=== PATIENT | female | born 1980 | race Two or more races ===

== ENCOUNTER 2020-11-13 05:44 | Day surgery (SDC) | payer MEDICARE, MEDICAID ==
--- NOTE | 2020-11-09 11:13 | Opthalmology H&P ---
Ophthalmology H&P H&P Chief Complaint: decreased vision in right eye HPI Vision Affects Ability to: read, drive, manage personal affairs HPI Narrative Blurry vision Exam Visual Acuity: OD 20/60 OS 20/80 Tension: OD 13 OS 13 Eye Exam: normal OU: external exam, palpebral fissure-width, marginal reflex distance, levator function, corneas, anterior chambers, fundus exam; findings: lens - PSC Cataract OD Assessment/Plan Treatment Plan: cataract extraction w/ lens implant Goals of Treatment: improvement of vision, enhance quality of life Attestation Attestation The risks and benefits of the surgery as well as alternative procedures were explained to the patient in detail. Justino Talamantes MD Nov 09, 2020 11:13
--- NOTE | 2020-11-09 11:14 | Pre-Procedure Note/Attestation ---
Pre-Procedure Note/Attestation Complete Prior to Procedure Planned Procedure: right Procedure Narrative: Cataract extraction with IOL implant right eye Indications for Procedure Pre-Operative Diagnosis: Posterior subcapsular cataract right eye Attestation I attest that I discussed the nature of the procedure; its benefits; risks and complications; and alternatives (and the risks and benefits of such alternatives), prior to the procedure, with the patient (or the patient's legal herbicide service sales representative). I attest that, if there was a reasonable possibility of needing a blood transfusion, the patient (or the patient's legal herbicide service sales representative) was given the [facility] standardized written summary, pursuant to the Adriel Maulik Blood Safety Act ([place] [facility] and Safety Code # 1645, as amended). I attest that I re-evaluated the patient just prior to the surgery and that ther e has been no change in the patient's H&P, except as documented below: Justino Talamantes MD Nov 09, 2020 11:14
--- NOTE | 2020-11-09 11:22 | Opthalmology H&P ---
Ophthalmology H&P H&P Chief Complaint: decreased vision in right eye HPI Vision Affects Ability to: read, drive, manage personal affairs HPI Narrative Blurry Vision Exam Visual Acuity: OD 20/60 OS 20/50 Tension: OD 13 OS 16 Eye Exam: normal OU: external exam, palpebral fissure-width, marginal reflex distance, levator function, corneas, anterior chambers; findings: lens - NS Cataract OD, fundus exam - NPDR OU Assessment/Plan Treatment Plan: cataract extraction w/ lens implant Goals of Treatment: improvement of vision, enhance quality of life Attestation Attestation The risks and benefits of the surgery as well as alternative procedures were explained to the patient in detail. Justino Talamantes MD Nov 09, 2020 11:22
[2020-11-13] VITALS (11 sets, daily range): BP systolic 56–118; BP diastolic 51–72
[~2020-11-13] VITALS: Ht 165.1 cm; Wt 68.5 kg
[~2020-11-13 05:44] MED LIST: ALBUTEROL SULF8.5 G2 IH; VICODIN PO
[2020-11-13] MEDS: Tropicamide 1% Opth 15ml Soln RIGHT EYE SCH ×3 (06:22→06:35)
[2020-11-13] MEDS: Phenylephrine 10% Opth Soln 5ml RIGHT EYE SCH ×3 (06:22→06:36)
[2020-11-13] MEDS: Tobramycin Op Soln 0.3% 5ml RIGHT EYE SCH ×3 (06:22→06:35)
[2020-11-13] MEDS: Diclofenac Sod 0.1% Op Soln RIGHT EYE SCH ×3 (06:22→06:36)
[2020-11-13] MEDS ORDERED: Proparacaine 0.5% Opth Soln 15ml RIGHT EYE ONE (07:00)
[2020-11-13] MEDS ORDERED: Maxitrol Opth Oint 3.5gm ONE (07:00)
[2020-11-13] MEDS ORDERED: prednisoLONE acetate 1% Opth Susp 1ml ONE (07:00)
[2020-11-13] MEDS ORDERED: Tetracaine 0.5% Opth 4ml Soln RIGHT EYE ONE (07:00)
[2020-11-13] MEDS ORDERED: Akten 3.5% 1ml Btl RIGHT EYE ONE (07:00)
[2020-11-13] MEDS ORDERED: Pilocarpine 1% Opth 15ml Soln ONE (07:00)
[2020-11-13] MEDS ORDERED: Midazolam 2mg/2ml Inj ONE (07:11)
[2020-11-13] MEDS ORDERED: fentaNYL 100 mcg/2 mL IV ONE (07:11)
--- NOTE | 2020-11-13 07:24 | Anethesia Preoperative Eval ---
Anesthesia Pre-op PMH/ROS General Date of Evaluation: Nov 13, 2020 Time of Evaluation: 07:22 Anesthesiologist: Lane ASA Score: ASA 3 Mallampati Score Class I : Soft palate, uvula, fauces, pillars visible Class II: Soft palate, uvula, fauces visible Class III: Soft palate, base of uvula visible Class IV: Only hard plate visible Mallampati Classification: Class II Surgeon: [place] Diagnosis: R eye cataract Surgical Procedure: Cataract extraction Anesthesia History: none Social History: smoking - h/o Family History: no anesthesia problems Allergies: Coded Allergies: PENICILLINS (Verified Allergy, Severe, SWELLING, 11/13/20) Medications: see eMAR Patient NPO?: Yes Past Medical History Cardiovascular: Denies: HTN, CAD, [place], valve dz, arrhythmia, other Pulmonary: Reports: asthma - stable on meds; Denies: COPD, NATALY, other Gastrointestinal/Genitourinary: Reports: GERD; Denies: CRI, ESRD, other Neurologic/Psychiatric: Reports: CVA, depression/anxiety, other - h/o seizers Endocrine: Denies: DM, hypothyroidism, steroids, other HEENT: Reports: cataract (R), other - R eye retinal detouchment; Denies: cataract (L), glaucoma, [place] (L), [place] (R) Hematology/Immune: Reports: anemia - mild; Denies: DVT, bleeding disorder, other Musculoskeletal/Integumentary: Denies: OA, RA, DJD, DDD, edema, other PMH Narrative: as above PSxH Narrative: R eye retinal Sx, tubal ligation Anesthesia Pre-op Phys. Exam Physician Exam Last Vital Signs Date Time Temp Pulse Resp B/P (MAP) Pulse Ox O2 Delivery O2 Flow Rate FiO2 11/13/20 06:30 Room Air 11/13/20 06:25 98.7 68 18 118/60 99 Constitutional: NAD Neurologic: CN 2-12 intact Cardiovascular: RRR, no M/R/G Respiratory: CTA Gastrointestinal: S/NT/ND Airway Exam Mallampati Score: Class II MO: limited Neck: stiff ROM: limited Teeth: missing Dentures: no upper, no lower Anesthesia Pre-op A/P Labs see chart Studies Pre-op Studies: EKG - NSR Risk Assessment & Plan Assessment: ASA 3 Plan: MAC Status Change Before Surgery: No Vakulenko,Kang MD Nov 13, 2020 07:24
[2020-11-13] MEDS ORDERED: Carbachol 0.01% Op Soln 1.5ml vial ONE (07:33)
[2020-11-13] MEDS ORDERED: BSS 15ml BTL ONE (07:33)
[2020-11-13] MEDS ORDERED: EPINEPHrine 1mg/1ml Amp ONE (07:33)
[2020-11-13] MEDS ORDERED: BSS 500ml btl ONE (07:33)
[2020-11-13] MEDS ORDERED: Sodium Hyaluronate 10 mg/ml 0.85ml ONE (07:33)
[2020-11-13] MEDS ORDERED: acetaZOLAMIDE 500mg Inj ONE (07:33)
[2020-11-13] MEDS ORDERED: Lidocaine 4% Amp 5ml ONE (07:42)
[2020-11-13] MEDS ORDERED: Bupivacaine 0.75% 30ml vial INJ ONE (07:42)
[2020-11-13] MEDS ORDERED: Povidone-Iodine 5% opth solution ONE (07:42)
[2020-11-13] MEDS ORDERED: Lidocaine 2% MPF 5ml Vial INJ ONE (07:42)
[2020-11-13] MEDS ORDERED: Lidocaine 1% MPF 10mg/ml 5ml ONE (07:42)
[2020-11-13] MEDS ORDERED: fentaNYL 100 mcg/2 mL IV PRN (07:45)
[2020-11-13] MEDS ORDERED: LR 1000ml 1,000 ML IVLG SCH (07:45)
[2020-11-13] MEDS ORDERED: LR 1000ml ONE (08:00)
[2020-11-13] MEDS ORDERED: Sterile Water Irrig 1000ml IRRIG ONE (08:00)
[2020-11-13] MEDS ORDERED: NS Irrig 1000ml ONE (08:00)
--- NOTE | 2020-11-13 08:39 | Immediate Post-Op Evaluation ---
Immediate Post-Op Evalulation Immediate Post-Op Evalulation Procedure: R eye cataract extraction with IOL Date of Evaluation: Nov 13, 2020 Time of Evaluation: 08:38 IV Fluids: 400 Blood Products: none Estimated Blood Loss: none Urinary Output: none Blood Pressure Systolic: 121 Blood Pressure Diastolic: 64 Pulse Rate: 76 Respiratory Rate: 20 O2 Sat by Pulse Oximetry: 99 Temperature (Fahrenheit): 97.8 Pain Score (1-10): 1 Nausea: No Vomiting: No Complications none Patient Status: awake, patent, none Hydration Status: adequate Kang Sherman MD Nov 13, 2020 08:39
[2020-11-13] MEDS ORDERED: HYDROcodone/Acetamin 5/325 tab ORAL SCH (09:30)
[2020-11-13] MEDS ORDERED: HYDROcodone/Acetamin 5/325 tab ONE (09:34)
--- NOTE | 2020-11-13 11:21 | 48 Hour Post Anesthesia Eval ---
Post Anesthesia Evaluation Procedure: R eye cataract extraction with IOL Date of Evaluation: Nov 13, 2020 Time of Evaluation: 09:30 Blood Pressure Systolic: 56 0: 72 Pulse Rate: 68 Respiratory Rate: 20 Temperature (Fahrenheit): 97.6 O2 Sat by Pulse Oximetry: 99 Airway: patent Nausea: No Vomiting: No Pain Intensity: 2 Hydration Status: adequate Cardiopulmonary Status: stable Mental Status/LOC: patient returned to baseline Follow-up Care/Observations: n/a Post-Anesthesia Complications: none Follow-up care needed: ready to discharge Kang Sherman MD Nov 13, 2020 11:21
--- NOTE | 2020-11-15 09:24 | Brief Operative Note ---
Immediate Post Operative Note Operative Note Chief Complaint: Blurry vision Pre-op Diagnosis: Posterior subcapsular cataract right eye Procedure: Cataract extraction with IOL implant right eye Post-op Diagnosis: Pseudo OD Findings: consistent w/pre-op dx studies Surgeon: Justino Talamantes MD Anesthesiologist: Kang Sherman MD Anesthesia: MAC Specimen: none Complications: none Condition: stable Fluids: LR Estimated Blood Loss: none Drains: none Implant(s) used?: Yes - IOL-OD Justino Talamantes MD Nov 15, 2020 09:24
--- NOTE | 2020-11-15 09:28 | Operative Note - PDOC ---
Operative Note Operative Note Date of Operation/Procedure: Nov 13, 2020 Chief Complaint: Blurry vision Pre-op Diagnosis: Posterior subcapsular cataract right eye Procedure: Cataract extraction with IOL implant right eye Post-op Diagnosis: Pseudo OD Operative Findings: consistent w/pre-op dx studies Surgeon: Justino Talamantes MD Anesthesiologist: Kang Sherman MD Anesthesia: MAC Specimen: none Complications: none Condition: stable Fluids: LR Estimated Blood Loss: none Drains: none Implant(s) used?: Yes - IOL-OD Indications for Procedure Posterior subcapsular cataract right eye Description of Procedure This patient has been complaining visually significant cataract in the right eye with the best corrected visual acuity of 20/80 under moderate glare conditions worse. The patient complains of difficulties with glare in performing activities of daily living and wants to manage personal affairs with comfort and accuracy and see well enough to move with safety at home and outdoors. The risks, benefits and alternatives of the procedure were discussed with the patient in the office prior to scheduling surgery. All questions from the patient were answered after the surgical procedure was explained in detail. The risks of the procedure as explained to the patient include, but are not limited to, pain, infection, bleeding, loss of vision, retinal detachment, need for further surgery, loss of lens nucleus, double vision, etc. Alternative procedures were discussed which include, to do nothing or seek a second opinion. Informed consent for this procedure was obtained from the patient. The patient was referred to a primary care physician for a cardiopulmonary clearance prior to surgery, after proper evaluation was done patient was properly scheduled for outpatient surgery. The patient was brought to the operating room where the anesthesiologist established I.V. lines and cardiac monitoring leads. Mild intravenous sedation was administered. The patient was then prepared with a 5% solution of povidone-iodine to the conjunctival fornix and lashes, and a 5% solution of povidone-iodine to the lids and periorbital skin. The patient was then draped in the usual sterile fashion. A lid speculum was then placed in the operative eye. A keratome blade was then used to create a biplanar incision into the anterior chamber. Viscoelastics was then instilled into the anterior chamber. A capsulorrhexis was then fashioned with an utrata forceps A G 27 cannula was used to hydrodissect and hydro delineate the lens nucleus. Paracentesis incision was made at 3 o'clock with sharp blade. The phacoemulsification unit, after being properly adjusted and tested, was then used to emulsify the nucleus followed by aspiration and irrigation of residual cortical material. Healon was then instilled into the anterior chamber. The corneal wound was then enlarged to the size of the optic with the leah keratome blade. The intraocular lens was then inspected for right power and size and thought to be satisfactory. Then the lens was gently placed in the capsular bag. Positioning within the capsular bag was confirmed by direct visualization. Optic centration was accomplished with a Sins[place] hook. Viscoelastics was removed from the anterior chamber using the irrigation and aspiration unit. The corneal wound was then tested for leaks and none were found. The lid speculum were then removed. Sponge and needle counts were correct. An eye patch and shield were placed over the operative eye. The patient was taken to the recovery room in stable condition. There were no complications. The patient tolerated the procedure well. The patient was then transferred to the ambulatory surgery unit in stable and satisfactory condition, was given detailed written instructions and asked to follow up in the office the next day. Justino Talamantes MD Nov 15, 2020 09:28
== END 2020-11-13 10:00 | disposition home or self-care (01) ==
LOC: SUR 05:44
DX: H25.041 Posterior subcapsular polar age-related cataract, right eye (principal); K21.9 Gastro-esophageal reflux disease without esophagitis; Z88.0 Allergy status to penicillin; F41.9 Anxiety disorder, unspecified; F32.9 Major depressive disorder, single episode, unspecified; G40.909 Epilepsy, unspecified, not intractable, without status epilepticus; Z86.73 Personal history of transient ischemic attack (TIA), and cerebral infarction without residual deficits; D64.9 Anemia, unspecified
CPT/HCPCS: 81025; 94003; 94150; J2250